=== PATIENT | female | born 1930 ===

== ENCOUNTER 2018-04-02 05:15 | Day surgery (SDC) | payer OTHER ==
[~2018-04-02 05:15] MED LIST: AMOX1TAB12 PO; CALTRATE PLUS T1 TAB PO; CARDIOVID PLUS1 CAP PO; INTEGRA F CAPS1 EACH PO; INTESTINEX680 MG PO; IRBESARTAN150 MG PO; LOSARTAN POTASS25 MG PO; OMEPRAZOLE20 MG PO; PROBIOTIC250 MG PO; PROTONIX20 MG PO; SINGULAIR 10MG10 MG PO; SYNTH; VASOFLEX SOFTG1 EACH PO
== END 2018-04-02 10:25 | disposition home or self-care (01) ==
LOC: AMB-ENDOS 05:15
DX: K57.30 Diverticulosis of large intestine without perforation or abscess without bleeding (principal)